=== PATIENT | female | born 1990 | race Caucasian/White ===

== ENCOUNTER 2019-09-19 17:57 | Emergency (ER) | payer MEDICAID ==
[2019-09-19] MEDS ORDERED: NORMAL SALINE 1000 ML 1,000 ML IV ONE (18:36)
--- NOTE | 2019-09-19 18:38 | ER Document Report ---
ED Medical Screen (RME) - General Chief Complaint: Dizziness Stated Complaint: PANIC ATTACK Time Seen by Provider: 09/19/19 18:25 Primary Care Provider: TAL SINCLAIR MD [Primary Care Provider] - Follow up as needed Mode of Arrival: Medic Information source: Patient Notes: 29-year-old female presented to ED for having a near syncopal episode at the doctor's office after drawing blood. She states she was seen in the doctor for having bad aches and pains lightheadedness dizziness oriented confusion achy for about the last 4 weeks. She is today she states she is been extremely achy and fatigued. States she was in the and blood when she started having a panic attack hyperventilating shaking was not able to be still. She states she has had low back pain that is chronic. State was supposed to give her a shot for the low back pain. States she is also had some cardiac problems and they were going to refer her to a body wirer. Vital signs were much better when she came into the emergency room we were discussing whether to give her a shot of Toradol and let her go home but when she tried to stand up she stated she was very lightheaded and could not walk. She felt like she was going to pass out when she stood up. She is alert oriented respirations regular and unlabored. She states she is a former smoker and rarely drinks and has not used any drugs in a while. We will get blood work EKG and give her some IV fluids. I have greeted and performed a rapid initial assessment of this patient. A comprehensive ED assessment and evaluation of the patient, analysis of test results and completion of medical decision making process will be conducted by an additional ED providers. TRAVEL OUTSIDE OF THE [place] IN LAST 30 DAYS: No - Related Data Allergies/Adverse Reactions: Sulfa (Sulfonamide Antibiotics) Allergy (Verified 09/19/19 18:24) Home Medications: advair. flexeril. yeast infection medication. vitamin d. proair Past Medical History - Social History Chew tobacco use (# tins/day): No Frequency of alcohol use: Occasional Drug Abuse: None Physical Exam - Vital signs Vitals: Temp Pulse Resp BP Pulse Ox 98.8 F 99 24 H 129/71 H 100 09/19/19 18:07 09/19/19 18:07 09/19/19 18:07 09/19/19 18:07 09/19/19 18:07 Course - Vital Signs Vital signs: Temp Pulse Resp BP Pulse Ox 98.4 F 99 24 H 129/71 H 100 09/19/19 18:25 09/19/19 18:07 09/19/19 18:07 09/19/19 18:07 09/19/19 18:07 Doctor's Discharge - Discharge Referrals: TAL SINCLAIR MD [Primary Care Provider] - Follow up as needed
[2019-09-19] MEDS ORDERED: KETOROLAC TROMETHAMINE INJ/PF 30 MG/1 ML SDV IV ONE (18:42)
[2019-09-19 20:15] LABS: ALBUMIN 4.4 g/dL (3.5-5.0); ALKALINE PHOSPHATASE 112 U/L (38-126); ANION GAP 9 (5-19); ASPARTATE AMINO TRANSFERASE 39 U/L (14-36); BILIRUBIN,TOTAL 0.5 mg/dL (0.2-1.3); BLOOD UREA NITROGEN 12 mg/dL (7-20); CALCIUM 9.1 mg/dL (8.4-10.2); CARBON DIOXIDE 22 mmol/L (22-30); CHLORIDE 107 mmol/L (98-107); GLUCOSE 92 mg/dL (75-110); POTASSIUM 3.7 mmol/L (3.6-5.0); TOTAL PROTEIN 7.7 g/dL (6.3-8.2)
[2019-09-19 20:39] LABS: ABSOLUTE EOSINOPHILS # (AUTO) 0.1 10^3/uL (0.0-0.6); ABSOLUTE LYMPHOCYTES (AUTO) 1.8 10^3/uL (0.5-4.7); ABSOLUTE MONOCYTES (AUTO) 0.5 10^3/uL (0.1-1.4); BASOPHILS % (AUTO) 0.3 % (0-2); EOSINOPHILS % (AUTO) 0.6 % (0-6); HEMATOCRIT 39.3 % (36.0-47.0); HEMOGLOBIN 13.3 g/dL (12.0-15.5); LYMPHOCYTES % (AUTO) 18.9 % (13-45); MEAN CORPUSCULAR HEMOGLOBIN 29.7 pg (27.0-33.4); MEAN CORPUSCULAR HGB CONC 33.8 g/dL (32.0-36.0); MEAN CORPUSCULAR VOLUME 88 fl (80-97); MONOCYTES % (AUTO) 5.7 % (3-13); PLATELET COUNT 245 10^3/uL (150-450); RED BLOOD COUNT 4.46 10^6/uL (3.72-5.28); RED CELL DISTRIBUTION WIDTH 12.8 % (11.5-14.0); SEGMENTED NEUTROPHILS % (AUTO) 74.5 % (42-78); TOTAL CELLS COUNTED % (AUTO) 100 %; WHITE BLOOD COUNT 9.4 10^3/uL (4.0-10.5)
--- NOTE | 2019-09-19 21:06 | ER Document Report ---
ED General - General Chief Complaint: Dizziness Stated Complaint: PANIC ATTACK Time Seen by Provider: 09/19/19 18:25 Primary Care Provider: TAL SINCLAIR MD [Primary Care Provider] - Follow up as needed Mode of Arrival: Medic Notes: Patient is a 29-year-old white female with a past medical history of ongoing chronic myalgias, under investigation by her PCP for potential fibromyalgia who presents to the emergency department today with a chief complaint of syncopal- like episode that occurred at her doctor's office today. The patient states she was there getting several tubes of blood drawn to undergo multiple tests for her ongoing symptoms when she suddenly started to "see stars" and then passed out. She states she felt like her whole body was locked up and she could not really move or talk very much. She states she is never had anything like this happen in the past. She reports he called EMS and had her transported here. She states that after receiving an IV fluid bolus she feels much better and back to normal. Denies any further ongoing symptoms. TRAVEL OUTSIDE OF THE [place] IN LAST 30 DAYS: No - Related Data Allergies/Adverse Reactions: Sulfa (Sulfonamide Antibiotics) Allergy (Verified 09/19/19 18:24) Home Medications: advair. flexeril. yeast infection medication. vitamin d. proair Past Medical History - General Information source: Patient - Social History Smoking Status: Former Smoker Chew tobacco use (# tins/day): No Frequency of alcohol use: Occasional Drug Abuse: None Family History: Reviewed & Not Pertinent Patient has homicidal ideation: No - Past Medical History Cardiac Medical History: Reports: Hx Hypertension Pulmonary Medical History: Reports: Hx Asthma Past Surgical History: Reports: Hx Cholecystectomy, Hx Orthopedic Surgery Review of Systems - Review of Systems Notes: As per HPI Cardiovascular: Syncope Neurological/Psychological: Other - Syncope -: Yes All other systems reviewed and negative Physical Exam - Vital signs Vitals: Temp Pulse Resp BP Pulse Ox 98.8 F 99 24 H 129/71 H 100 09/19/19 18:07 09/19/19 18:07 09/19/19 18:07 09/19/19 18:07 09/19/19 18:07 - General General appearance: Appears well, Alert In distress: None - HEENT Head: Normocephalic, Atraumatic Eyes: Normal Conjunctiva: Normal Extraocular movements intact: Yes Eyelashes: Normal Pupils: PERRL Ears: Normal External canal: Normal Tympanic membrane: Normal Nasal: Normal Mouth/Lips: Normal Mucous membranes: Normal Pharynx: Normal Neck: Normal - Respiratory Respiratory status: No respiratory distress Chest status: Nontender Breath sounds: Normal Chest palpation: Normal - Cardiovascular Rhythm: Regular Heart sounds: Normal auscultation - Extremities General upper extremity: Normal inspection, Nontender, Normal color, Normal ROM, Normal temperature General lower extremity: Normal inspection, Nontender, Normal color, Normal ROM, Normal temperature, Normal weight bearing. No: Cindy's sign - Neurological Neuro grossly intact: Yes Cognition: Normal Orientation: AAOx4 [place]rick Coma Scale Eye Opening: Spontaneous [place]rick Coma Scale Verbal: Oriented [place] Coma Scale Motor: Obeys Commands Rodrick Coma Scale Total: 15 Speech: Normal Cranial nerves: Normal Cerebellar coordination: Normal, Other - Normal [id number], [id number] and rapid alternating hand movements. No gait ataxia. 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 No: Pronator drift Sensory: Normal - Psychological Associated symptoms: Normal affect, Normal mood - Skin Skin Temperature: Warm Skin Moisture: Dry Skin Color: Normal Course - Re-evaluation Re-evalutation: 09/19/19 21:05 Patient's history and physical consistent with a vasovagal syncopal episode. She is at baseline now. Nonfocal neuro exam. She is stable and appropriate for discharge and outpatient follow-up with her primary doctor. I counseled her regarding the importance of outpatient follow-up and advised that she return here any ER immediately with any new, persistent or worsening symptoms. She verbalized understood and agreed. - Vital Signs Vital signs: Temp Pulse Resp BP Pulse Ox 98.4 F 99 15 122/75 99 09/19/19 20:00 09/19/19 18:07 09/19/19 20:31 09/19/19 20:31 09/19/19 20:31 - Laboratory Result Diagrams: 09/19/19 20:25 09/19/19 19:42 Laboratory results interpreted by me: 09/19/19 19:42 AST 39 H ALT 39 H Discharge - Discharge Clinical Impression: Vasovagal syncope Condition: Stable Disposition: HOME, SELF-CARE Instructions: Vasovagal Symptoms ([facility]) Additional Instructions: Follow-up with your regular doctor in 2 to 3 days for reevaluation. Return here or any ER immediately with any new, persistent or worsening symptoms. Referrals: TAL SINCLAIR MD [Primary Care Provider] - Follow up as needed
[2019-09-19 21:32] VITALS: BP 126/64
--- NOTE | 2019-09-20 09:45 | EKG REPORT ---
SEVERITY:- BORDERLINE ECG - SINUS TACHYCARDIA BORDERLINE T WAVE ABNORMALITIES : Confirmed by: Mimi Andres MD 20-Sep-2019 09:44:20
== END 2019-09-19 21:38 | disposition home or self-care (01) ==
LOC: ER 17:57
DX: R55 Syncope and collapse (principal); M79.10 Myalgia, unspecified site; G89.29 Other chronic pain; I10 Essential (primary) hypertension; J45.909 Unspecified asthma, uncomplicated; Z79.51 Long term (current) use of inhaled steroids; Z79.899 Other long term (current) drug therapy; Z88.2 Allergy status to sulfonamides; Z87.891 Personal history of nicotine dependence
CPT/HCPCS: 93005; 99284; 96374; 36415; 84703; 85025; 80053; 93010; J1885; J7030